=== PATIENT | female | born 1990 | race Caucasian/White ===

== ENCOUNTER → 2021-08-27 13:29 | Outpatient (CLI) | payer MEDICAID, SELFPAY ==
[2021-08-29 09:26] LABS: Progesterone 37.3 ng/mL (.)
== END ==
PROVIDERS: PCP Family Medicine; Visit Provider Obstetrics & Gynecology
DX: N92.6 Irregular menstruation, unspecified (principal); E28.2 Polycystic ovarian syndrome
CPT/HCPCS: 84144

== ENCOUNTER → 2022-08-13 10:59 | Outpatient (CLI) | payer MEDICAID, SELFPAY ==
[2022-08-13 11:06] LABS: Microscopic, Urine URINE MICROSCOPIC (MICROSCOPIC)
[2022-08-13 14:40] LABS: Appearance,Urine CLEAR (Clear); Bilirubin,Urine Negative (Negative); Blood, Urine Negative (Negative); Color,Urine YELLOW (Yellow); Glucose,Urine (UA) Negative (Negative); Ketones,Urine Negative (Negative); Leukocyte Esterase,Urine Negative (Negative); Nitrate,Urine Negative (Negative); Protein,Urine Negative (Negative); Specific Gravity, Urine 1.025 (1.005-1.030); Urobilinogen,Urine 0.2 EU/dl (0.2)
[2022-08-13 14:55] LABS: Bacteria,Urine Trace /lpf; RBC,Urine Occasional #/hpf (0-3)
== END ==
PROVIDERS: PCP Internal Medicine Adolescent Medicine; Visit Provider Obstetrics & Gynecology
DX: Z01.810 Encounter for preprocedural cardiovascular examination (principal)
CPT/HCPCS: 81001; 87086

== ENCOUNTER 2022-11-08 16:55 | Emergency (ER) | payer MEDICAID, SELFPAY ==
[2022-11-08 16:56] VITALS: BP 132/86; PULSE 88; RESP 18; TEMP 36.6; O2SAT 99; BMI 49.4
--- NOTE | 2022-11-08 17:05 | HMH.EDGENADL ---
Discharge Plan Disposition Patient Disposition: Home, Self-Care Prescriptions Prescriptions: New cephalexin 500 mg capsule 500 mg PO QID 5 Days Qty: 20 0RF Referrals Follow up/Referrals: Nickolas Lake MD [Primary Care Provider] - See instructions Clinical Impressions Clinical Impression: Finger laceration Instructions Patient Instructions: DI for Laceration Repair Discharge ED Provider: Kristy Asif General Adult HPI General Chief complaint: Wound/Laceration Stated complaint: AO 1615 cut middle finger right hand Time Seen by Provider: 11/08/22 17:05 History of Present Illness HPI narrative: 31-year-old previously healthy female here today with finger laceration after cutting her finger with a hedge tremor. Hedge tremor was contaminated with soil. Patient most recently received a tetanus immunization 1 year ago. Pain is mild no injuries elsewhere. No loss of flexion extension or sensory function. Related Data Previous Rx's Medication Instructions Recorded cephalexin 500 mg capsule 500 mg PO QID 5 days #20 caps 11/08/22 Allergies Allergy/AdvReac Type Severity Reaction Status Date / Time No Known Allergies Allergy Verified 11/08/22 17:41 [facility] Disclaimer: The information contained in this section may have been updated after the patient was seen, as this information can be updated by other users. Social History Smoking Status: Never smoker alcohol intake: never current occupational status: other Travel in the last 8 weeks: None ROS Obtained: Yes All systems reviewed & no additional complaints except as documented Physical Exam General General appearance: alert and in no apparent distress Respiratory Respiratory exam: Present normal lung sounds bilaterally Cardiovascular Cardiovascular exam: Present regular rate; Absent tachycardia Extremities Exam Extremities exam: Present other (Right middle finger multiple stellate and jagged lacerated edges on the volar aspect extending up near the bed of the nail good capillary refill flexor extension and are intact) Neurological Exam Neurological exam: Present alert and oriented X3 Medical Decision Making Morales Inquiry Pt receiving controlled substance: No Vital Signs: 11/08/22 16:56 Temperature 97.8 F Temperature Source Oral Pulse Rate [Left Radial] 88 Respiratory Rate 18 Blood Pressure [Left Arm] 132/86 Blood Pressure Mean [Left Arm] 101 Blood Pressure Source [Left Arm] Automatic Cuff Blood Pressure Position [Left Arm] Sitting 02 Sat by Pulse Oximetry 99 Oxygen Delivery Method Room Air Medical Decision Narrative: Tissue is superficially macerated. X-ray would not change consultant at this point but this seems to be superficial in nature we will prophylactically treat with Keflex. Initially I was going to try to glue this however multiple areas were gaping and I repaired with 5-0 nylon sutures see procedure note reapproximating tissue the best that I could. She is aware that some of this tissue may be loss secondary to poor vascular supply but this would be superficial in nature and at a minimum we have a good physiologic dressing at the moment. She is been advised to take her sutures out in 7 days and to take her prophylactic antibiotics and return to emergency department or to her primary care doctor if any worsening of symptoms. Procedures Laceration Laceration 1: Site: finger Side (If applicable): right Size (cm): 10 (There are 3 lacerations each of which are 1 to 2 cm with a total at length of about 10 cm) Description: linear, stellate, flap, irregular and contaminated Depth: simple, single layer Local Anesthetic: lidocaine 1% and with epi (Digital block) Amount of anesthesia used (mL): 8 Pre-repair: wound explored, irrigated extensively, deep structures intact and wound margins revised Skin layer closed with: nylon Size (cm): 4-0 and 5-0
--- NOTE | 2022-11-08 17:12 | PC.NURSE ---
CHRISTEL VIDAL At
[2022-11-08 18:38] VITALS: BP 129/86; PULSE 76; RESP 18; TEMP 36.8; O2SAT 99
== END 2022-11-08 18:00 | disposition home or self-care (01) ==
PROVIDERS: Emergency Provider Student in an Organized Health Care Education/Training Program; PCP Internal Medicine Adolescent Medicine
DX: S61.212A Laceration without foreign body of right middle finger without damage to nail, initial encounter (principal); W29.3XXA Contact with powered garden and outdoor hand tools and machinery, initial encounter
CPT/HCPCS: 12004; 99282; 99284

== ENCOUNTER 2024-08-10 07:29 | Outpatient (CLI) | payer BC, SELFPAY ==
[2024-08-10 07:50] LABS: Basophils # 0.1 K/mm3 (0-0.2); Basophils % 1.3 % (0.1-2.0); Eosinophils # 0.1 K/mm3 (0.0-0.4); Eosinophils % 1.4 % (0.1-12.0); Hematocrit 42.2 % (37.0-47.0); Hemoglobin 13.7 g/dL (12.2-16.2); Lymphocytes % 35.2 % (10-50); Mean Corpuscular HGB Conc 32.6 g/dL (31.8-35.4); Mean Corpuscular Hemoglobin 29.6 pg (27.0-31.2); Mean Platelet Volume 7.3 fl (7.4-10.4); Monocytes # 0.4 K/mm3 (0.1-1.0); Monocytes % 6.4 % (1.7-9.3); Neutrophils # 3.1 K/mm3 (1.8-7.8); Neutrophils % 55.6 % (37.0-80.0); Platelet Count 360 K/mm3 (142-424); Red Blood Count 4.64 M/mm3 (4.20-5.40); Red Cell Distribution Width 13.3 % (11.5-17.5); White Blood Count 5.6 K/mm3 (4.8-10.8)
[2024-08-10 08:25] LABS: Albumin Level 4.2 g/dl (3.5-5.0); Chloride 105 mmol/L (98-107)
[2024-08-10 08:26] LABS: Potassium 4.2 mmoL/L (3.5-5.1); Sodium 134 mmol/L (136-145)
[2024-08-10 08:28] LABS: Alanine Aminotransferase 39 U/L (12-78); Anion Gap 5.2 mEq/L (5-15); Aspartate Amino Transferase 32 U/L (14-36); Bilirubin,Total 0.6 mg/dl (0.2-1.3); Blood Urea Nitrogen 15 mg/dl (7-17); Carbon Dioxide 28 mmol/L (22.0-30.0); Estimated Glomerular Filt Rate 83 ml/min (>60); GFR (African American) 100 ML/MIN (>60)
[2024-08-10 08:29] LABS: Albumin/Globulin Ratio 1.8 (1.1-1.8); Alkaline Phosphatase 78 U/L (38-126); Calcium 9.4 mg/dl (8.4-10.2); Chol/HDL Ratio 4.8 (1-3.5); Cholesterol 225 mg/dl (140-200); Globulin 2.4 g/dL (1.3-3.2); Glucose 100 mg/dl (74-100); HDL Cholesterol 47 mg/dl (40-60); Total Protein,Serum 6.6 g/dl (6.3-8.2); Triglycerides 174 mg/dl (30-150); VLDL Cholesterol 35 mg/dL (0-40)
[2024-08-10 08:40] LABS: Direct LDL Cholesterol 133.27 mg/dL (100-129)
[2024-08-10 08:58] LABS: Thyroid Stimulating Hormone 1.85 uIU/mL (0.465-4.68)
[2024-08-10 09:52] LABS: 25-OH Vitamin D, Total 31.5 ng/mL (30-100)
[2024-08-10 11:58] LABS: Hemoglobin A1C 5.4 % (4.0-6.0)
[2024-08-10 18:20] LABS: Vitamin B12 503 pg/mL (239-931)
== END 2024-08-10 23:59 | disposition home or self-care (01) ==
LOC: LAB 07:32
PROVIDERS: Obstetrics & Gynecology; PCP Internal Medicine Adolescent Medicine; Visit Provider Physician Assistant
DX: E28.2 Polycystic ovarian syndrome (principal)
CPT/HCPCS: 36415; 80050; 80053; 80061; 82306; 82607; 83036; 84443; 85025